=== PATIENT | male | born 1950 | race Caucasian/White ===

== ENCOUNTER 2017-03-30 04:53 | Emergency (ER) | payer MEDICARE, MEDICAID ==
[~2017-03-30] VITALS: Ht 172.7 cm; Wt 65.9 kg
[2017-03-30] MEDS ORDERED: LORazepam 1 MG TABLET PO ONE (06:45)
[2017-03-30 07:45] LABS: ANION GAP 9 mmol/L (8-16); CALCIUM, TOTAL 8.3 mg/dL (8.8-10.5); CARBON DIOXIDE 25 mmol/L (22-29); CHLORIDE 105 mmol/L (98-107); CREATININE 1.16 mg/dL (0.60-1.30); GLOMERULAR FILTR. RATE CALC > 60 mL/min (>60); GLUCOSE,RANDOM 92 mg/dL (70-110); POTASSIUM 5.1 mmol/L (3.5-5.1); SODIUM SERUM 139 mmol/L (136-145); UREA NITROGEN, BLOOD 18 mg/dL (7-18)
[2017-03-30 08:30] VITALS: BP 149/87
== END 2017-03-30 08:46 | disposition home or self-care (01) ==
LOC: EMS 04:58
DX: R25.2 Cramp and spasm (principal); I10 Essential (primary) hypertension; F17.210 Nicotine dependence, cigarettes, uncomplicated
CPT/HCPCS: 99283

== ENCOUNTER 2017-05-17 00:15 | Emergency (ER) | payer MEDICARE, MEDICAID ==
[~2017-05-17] VITALS: Ht 167.6 cm; Wt 68.2 kg
[2017-05-17] MEDS ORDERED: LISI40TA4 PO (00:27)
[2017-05-17] MEDS ORDERED: CYCLOBENZAPRINE HCL 10 MG TABLET PO ONE (01:45)
[2017-05-17 02:22] VITALS: BP 132/84
== END 2017-05-17 02:29 | disposition home or self-care (01) ==
LOC: EMS 00:17
DX: R25.2 Cramp and spasm (principal); E83.51 Hypocalcemia; I10 Essential (primary) hypertension; F17.210 Nicotine dependence, cigarettes, uncomplicated
CPT/HCPCS: 99283